=== PATIENT | male | born 1965 | race African-American/Black ===

== ENCOUNTER 2019-02-13 07:37 | Emergency (ER) | payer MEDICAID ==
[~2019-02-13] VITALS: Ht 175.3 cm; Wt 73.0 kg
[2019-02-13] MEDS ORDERED: LEVETIRACETAM 1000MG/100ML 100 ML IV ONE (08:30)
[2019-02-13 08:45] LABS: BASOPHILS % 0.6 % (0.0-2.0); EOSINOPHILS % 1.6 % (0.0-5.0); HEMATOCRIT. 47.5 % (42.0-52.0); HEMOGLOBIN. 15.5 g/dL (14.0-18.0); LYMPHOCYTES % 18.6 % (20.0-50.0); MEAN CORPUSCULAR HEMOGLOBIN 25.5 pg (28.0-32.0); MEAN CORPUSCULAR VOLUME 78.3 fL (80.0-94.0); MEAN PLATELET VOLUME 7.3 fl (7.4-10.4); MONOCYTES % 7.4 % (2.0-8.0); NEUTROPHILS % 71.8 % (40.0-76.0); PLATELET 224 x1000/uL (130-400); RED BLOOD CELL COUNT 6.06 mill/uL (4.7-6.1); RED CELL DISTRIBUTION WIDTH 16.6 % (11.6-14.6)
[2019-02-13 08:51] LABS: CHLORIDE 103 mEq/L (98-107)
[2019-02-13 08:56] LABS: ETHANOL BLOOD < 10 mg/dL
[2019-02-13 09:15] LABS: CLARITY URINE CLEAR (CLEAR); COLOR URINE YELLOW (YELLOW); KETONES URINE TRACE (NEGATIVE); LEUKOCYTE ESTERASE URINE NEGATIVE (NEGATIVE); NITRITE URINE NEGATIVE (NEGATIVE); OCCULT BLOOD URINE 1+ (NEGATIVE); PH URINE 5.5 (4.5-8.0); PROTEIN URINE 2+ (NEGATIVE); SPECIFIC GRAVITY URINE 1.016 (1.005-1.030); UROBILINOGEN URINE 0.2 E.U./dL (0.2-1.0)
[2019-02-13 09:26] LABS: *AMPHETAMINES SCREEN URINE NEGATIVE (NEGATIVE); *BARBITURATES SCREEN URINE NEGATIVE (NEGATIVE); *BENZODIAZEPINES SCREEN URINE NEGATIVE (NEGATIVE); *COCAINE SCREEN URINE NEGATIVE (NEGATIVE)
[2019-02-13 09:27] LABS: CANNABINOID URINE SCREEN NEGATIVE (NEGATIVE); METHADONE URINE SCREEN NEGATIVE (NEGATIVE); OPIATES URINE SCREEN NEGATIVE (NEGATIVE); PHENCYCLIDINE URINE SCREEN NEGATIVE (NEGATIVE)
[2019-02-13 11:44] VITALS: BP 122/98
== END 2019-02-13 11:45 | disposition home or self-care (01) ==
LOC: ER 07:37
DX: R56.9 Unspecified convulsions (principal); I10 Essential (primary) hypertension
CPT/HCPCS: 36415; 80053; 80305; 80320; 81003; 85025; 96365; 99283; J1953; G0480

== ENCOUNTER 2019-12-31 12:17 | Inpatient (IN) | payer MEDICAID ==
[~2019-12-31] VITALS: Ht 177.8 cm; Wt 59.4 kg
[2019-12-31] MEDS ORDERED: LEVETIRACETAM 500MG PREMIX 100 ML IV ONE (12:45)
[2019-12-31 13:05] LABS: BASOPHILS % 0.8 % (0.0-2.0); EOSINOPHILS % 0.5 % (0.0-5.0); HEMATOCRIT. 42.9 % (42.0-52.0); HEMOGLOBIN. 13.7 g/dL (14.0-18.0); LYMPHOCYTES % 8.4 % (20.0-50.0); MEAN CORPUSCULAR HEMOGLOBIN 25.4 pg (28.0-32.0); MEAN CORPUSCULAR VOLUME 79.7 fL (80.0-94.0); MEAN PLATELET VOLUME 8.8 fl (7.4-10.4); MONOCYTES % 6.2 % (2.0-8.0); NEUTROPHILS % 84.1 % (40.0-76.0); PLATELET 254 x1000/uL (130-400); RED BLOOD CELL COUNT 5.39 mill/uL (4.7-6.1); RED CELL DISTRIBUTION WIDTH 16.2 % (11.6-14.6)
[2019-12-31 13:30] LABS: CARBAMAZEPINE < 0.5 ug/mL (4-12); PHENOBARBITAL < 2.1 ug/mL (15.0-40.0); VALPROIC ACID < 3.0 ug/mL (50-100)
[2019-12-31 14:50] LABS: CHLORIDE 104 mEq/L (98-107)
[2019-12-31] MEDS ORDERED: SODIUM CHLORIDE 0.9% 1,000 ML IV ONE (16:56)
[2019-12-31] MEDS ORDERED: GUAIFENESIN 200MG/10ML SUGAR FREE UDC PO PRN (21:15)
[2019-12-31] MEDS ORDERED: DOCUSATE SODIUM 100MG CAPSULE PO PRN (21:15)
[2019-12-31] MEDS ORDERED: MORPHINE SULFATE 2 MG/ML CPJ (NOT FOR IM USE) IV PRN (21:15)
[2019-12-31] MEDS ORDERED: IPRATROPIUM/ALBUTEROL 0.5-3(2.5)MG/3ML NEB NEB PRN (21:15)
[2019-12-31] MEDS ORDERED: ONDANSETRON HCL 4MG/2ML INJ IV PRN (21:15)
[2019-12-31] MEDS ORDERED: DIPHENHYDRAMINE 50MG/ML VIAL IV PRN (21:15)
[2019-12-31] MEDS ORDERED: HYDROCODONE/ACETAMINOPHEN 5/325MG TABLET PO PRN (21:15)
[2019-12-31] MEDS ORDERED: ACETAMINOPHEN 325MG TABLET PO PRN (21:15)
[2019-12-31] MEDS ORDERED: LORAZEPAM 2MG/ML CPJ IV PRN (21:15)
[2019-12-31] MEDS ORDERED: NA PHOS,M-B/NA PHOS,DI-BA ENEMA 118ML PR PRN (21:15)
[2019-12-31] MEDS ORDERED: CLONIDINE 0.1MG TABLET PO PRN (21:15)
[2019-12-31] MEDS ORDERED: MAGNESIUM/ALUMINUM HYDROXIDE/SIMETHICONE 30ML UDC PO PRN (21:15)
[2019-12-31 21:54] VITALS: BP 115/65
[2019-12-31] MEDS: SODIUM CHLORIDE 0.45% 1,000 ML IV SCH (23:30)
[2020-01-01 00:43] LABS: CHLORIDE 104 mEq/L (98-107)
[2020-01-01 04:00] VITALS: BP 114/74
[2020-01-01] MEDS: ASPIRIN 81MG EC TABLET PO SCH (08:04)
[2020-01-01] MEDS: ENOXAPARIN 40MG/0.4ML SYR SUBCUT SCH (08:10)
[2020-01-01 08:21] VITALS: BP 128/80
[2020-01-01] MEDS ORDERED: POTASSIUM CHLORIDE 20MEQ TABLET SR PO NR (09:00)
[2020-01-01 10:29] LABS: CHLORIDE 104 mEq/L (98-107)
[2020-01-01 10:37] LABS: LDL CHOLESTEROL 37 mg/dL (5-100)
[2020-01-01 10:38] LABS: HDL CHOLESTEROL 107 mg/dL (40-59)
[2020-01-01 10:39] LABS: T4 FREE 1.38 ng/dL (0.76-1.46)
[2020-01-01] MEDS: NICOTINE 14MG PATCH TD SCH (10:45)
[2020-01-01] MEDS: SODIUM CHLORIDE 0.45% 1,000 ML IV SCH (10:46)
[2020-01-01 11:31] LABS: BASOPHILS % 0.7 % (0.0-2.0); EOSINOPHILS % 2.2 % (0.0-5.0); HEMATOCRIT. 49.7 % (42.0-52.0); HEMOGLOBIN. 15.5 g/dL (14.0-18.0); LYMPHOCYTES % 18.8 % (20.0-50.0); MEAN CORPUSCULAR HEMOGLOBIN 25.5 pg (28.0-32.0); MEAN CORPUSCULAR VOLUME 81.6 fL (80.0-94.0); MONOCYTES % 6.1 % (2.0-8.0); NEUTROPHILS % 72.2 % (40.0-76.0); RED CELL DISTRIBUTION WIDTH 16.3 % (11.6-14.6)
[2020-01-01 11:33] LABS: PLATELET 147 x1000/uL (130-400)
[2020-01-01 12:21] VITALS: BP 120/74
[2020-01-01] MEDS: PHENYTOIN SODIUM EXTENDED 100MG CAPSULE PO SCH ×2 (13:03→21:14)
[2020-01-01 16:00] VITALS: BP 126/78
[2020-01-01 16:05] LABS: T4 FREE 1.23 ng/dL (0.76-1.46)
[2020-01-01 16:06] LABS: CREATINE KINASE 223 IU/L (39-308)
[2020-01-01 16:07] LABS: CREATINE KINASE MB FRACTION 1.1 ng/mL (0.5-3.6)
[2020-01-01 20:00] VITALS: BP 125/75
[2020-01-01 22:41] LABS: *AMPHETAMINES SCREEN URINE NEGATIVE (NEGATIVE); *BARBITURATES SCREEN URINE NEGATIVE (NEGATIVE); *BENZODIAZEPINES SCREEN URINE NEGATIVE (NEGATIVE); *COCAINE SCREEN URINE NEGATIVE (NEGATIVE); METHADONE URINE SCREEN NEGATIVE (NEGATIVE)
[2020-01-01 22:42] LABS: CANNABINOID URINE SCREEN NEGATIVE (NEGATIVE); OPIATES URINE SCREEN NEGATIVE (NEGATIVE); PHENCYCLIDINE URINE SCREEN NEGATIVE (NEGATIVE)
[2020-01-02 00:16] LABS: CREATINE KINASE 174 IU/L (39-308); CREATINE KINASE MB FRACTION 1.3 ng/mL (0.5-3.6)
[2020-01-02 00:38] VITALS: BP 128/77
[2020-01-02 04:00] VITALS: BP 132/61
[2020-01-02] MEDS: SODIUM CHLORIDE 0.45% 1,000 ML IV SCH ×2 (05:44→08:05)
[2020-01-02] MEDS: PHENYTOIN SODIUM EXTENDED 100MG CAPSULE PO SCH (05:49)
[2020-01-02] MEDS: ENOXAPARIN 40MG/0.4ML SYR SUBCUT SCH (08:58)
[2020-01-02] MEDS: NICOTINE 14MG PATCH TD SCH (08:58)
[2020-01-02] MEDS: ASPIRIN 81MG EC TABLET PO SCH (08:59)
[2020-01-02] MEDS ORDERED: LOSARTAN POTASSIUM 25 MG TABLET PO SCH (09:00)
[2020-01-02] MEDS ORDERED: CARVEDILOL 3.125 MG TABLET PO SCH (09:00)
[2020-01-02 10:25] VITALS: BP 151/84
== END 2020-01-02 11:10 | disposition home or self-care (01) | DRG 53 ==
LOC: ER 12:56 → 6WST 16:40 → ENRESERV 20:45
PROVIDERS: ADMIT Internal Medicine; ATTEND Internal Medicine
DX: G40.804 Other epilepsy, intractable, without status epilepticus (principal); I67.82 Cerebral ischemia; E86.0 Dehydration; F17.210 Nicotine dependence, cigarettes, uncomplicated; S00.83XA Contusion of other part of head, initial encounter; I10 Essential (primary) hypertension; W18.39XA Other fall on same level, initial encounter; Y93.89 Activity, other specified; Y92.89 Other specified places as the place of occurrence of the external cause; Y99.8 Other external cause status; Z82.49 Family history of ischemic heart disease and other diseases of the circulatory system
CPT/HCPCS: 36415; 71045; 80048; 80053; 80061; 80156; 80165; 80184; 80185; 80305; 82550; 82553; 82962; 83036; 83880; 84439; 84443; 84484; 85025; 85379; 93005; 93306; 99285; C1893; J1650; J1953; J2060; J7030

== ENCOUNTER 2020-10-23 10:52 | Emergency (ER) | payer MEDICAID ==
[~2020-10-23] VITALS: Ht 180.3 cm; Wt 76.0 kg
[2020-10-23] MEDS ORDERED: LORAZEPAM 2MG/ML CPJ IV ONE ×2 (11:15)
[2020-10-23] MEDS ORDERED: LEVETIRACETAM 500MG PREMIX 100 ML IV ONE (11:15)
[2020-10-23 12:10] LABS: BASOPHILS % 0.4 % (0.0-2.0); HEMATOCRIT. 40.1 % (42.0-52.0); LYMPHOCYTES % 10.8 % (20.0-50.0); MEAN CORPUSCULAR HEMOGLOBIN 26.8 pg (28.0-32.0); MEAN CORPUSCULAR VOLUME 82.8 fL (80.0-94.0); MEAN PLATELET VOLUME 7.8 fl (7.4-10.4); MONOCYTES % 5.6 % (2.0-8.0); NEUTROPHILS % 83.2 % (40.0-76.0); PLATELET 262 x1000/uL (130-400); RED BLOOD CELL COUNT 4.85 mill/uL (4.7-6.1); RED CELL DISTRIBUTION WIDTH 19.7 % (11.6-14.6)
[2020-10-23 12:36] LABS: CHLORIDE 104 mEq/L (98-107)
[2020-10-23 12:39] LABS: ETHANOL BLOOD < 10 mg/dL
[2020-10-23 12:49] LABS: CLARITY URINE CLEAR (CLEAR); COLOR URINE YELLOW (YELLOW); KETONES URINE 1+ (NEGATIVE); LEUKOCYTE ESTERASE URINE NEGATIVE (NEGATIVE); NITRITE URINE NEGATIVE (NEGATIVE); OCCULT BLOOD URINE 1+ (NEGATIVE); PH URINE 6.5 (4.5-8.0); PROTEIN URINE 3+ (NEGATIVE); SPECIFIC GRAVITY URINE 1.018 (1.005-1.030)
[2020-10-23 13:02] LABS: *AMPHETAMINES SCREEN URINE NEGATIVE (NEGATIVE); *BARBITURATES SCREEN URINE NEGATIVE (NEGATIVE); *BENZODIAZEPINES SCREEN URINE NEGATIVE (NEGATIVE); *COCAINE SCREEN URINE NEGATIVE (NEGATIVE); METHADONE URINE SCREEN NEGATIVE (NEGATIVE)
[2020-10-23 13:03] LABS: CANNABINOID URINE SCREEN NEGATIVE (NEGATIVE); OPIATES URINE SCREEN NEGATIVE (NEGATIVE); PHENCYCLIDINE URINE SCREEN NEGATIVE (NEGATIVE)
[2020-10-23 21:40] VITALS: BP 149/77
== END 2020-10-23 22:02 | disposition home or self-care (01) ==
LOC: ER 11:01
DX: G40.909 Epilepsy, unspecified, not intractable, without status epilepticus (principal)
CPT/HCPCS: 36415; 80053; 80305; 80320; 81003; 85025; 96365; 96375; 99285; J1953; J2060; G0480